=== PATIENT | female | born 1985 | race Caucasian/White ===

== ENCOUNTER 2019-07-30 18:31 | Emergency (ER) | payer OTHER ==
[~2019-07-30] VITALS: Ht 162.6 cm; Wt 113.4 kg
[~2019-07-30 18:31] MED LIST: CLEOCIN HCL150 MG PO; IBUPROFEN 600600 M1 PO; IBUPROFEN 800800 MG PO; NAPROSYN500 MG PO; NOHOMEMEDICATIONS; NORCO 5-325 TA1 EACH PO; PHENERGAN 25 MG25 M1 PO; PREDNISONE50 MG PO; PRELONE15 MG/5 ML PO; TRAMADOL 50 MG50 MG PO; ZANTAC 150MG T150 M1 PO
[2019-07-30 18:46] LABS: URINE BILIRUBIN NEGATIVE (Negative); URINE BLOOD NEGATIVE (Negative); URINE CLARITY CLEAR; URINE COLOR YELLOW; URINE GLUCOSE-RANDOM* NEGATIVE (Negative); URINE KETONES NEGATIVE (Negative); URINE LEUKOCYTES-REFLEX TRACE (Negative); URINE NITRITE-REFLEX NEGATIVE (Negative); URINE PROTEIN (DIPSTICK) NEGATIVE (Negative); URINE UROBILINOGEN 0.2 E.U./dl (0.2-1.0)
[2019-07-30] MEDS ORDERED: ENBRACE HR SOF1 EACH PO (21:00)
[2019-07-30 21:35] VITALS: BP 148/106
== END 2019-07-30 21:35 | disposition home or self-care (01) ==
LOC: ER 18:31
PROVIDERS: Emergency Medicine; Physician Assistant
DX: O26.891 Other specified pregnancy related conditions, first trimester (principal); R10.31 Right lower quadrant pain; F17.210 Nicotine dependence, cigarettes, uncomplicated; Z3A.00 Weeks of gestation of pregnancy not specified; Z87.442 Personal history of urinary calculi; Z88.0 Allergy status to penicillin

== ENCOUNTER 2019-08-06 17:57 | Emergency (ER) | payer OTHER ==
[~2019-08-06] VITALS: Ht 162.6 cm; Wt 113.4 kg
[~2019-08-06 17:57] MED LIST changes: +ENBRACE HR SOF1 EACH PO
[2019-08-06 18:12] VITALS: BP 133/83
== END 2019-08-06 20:06 | disposition home or self-care (01) ==
LOC: ER 17:57
DX: Z32.01 Encounter for pregnancy test, result positive (principal); F17.210 Nicotine dependence, cigarettes, uncomplicated; Z87.442 Personal history of urinary calculi; Z88.0 Allergy status to penicillin